=== PATIENT | male | born 2000 | race Caucasian/White ===

== ENCOUNTER 2023-04-14 18:56 | Emergency (ER) | payer OTHER, BC ==
[2023-04-14] MEDS ORDERED: Lidocaine 1% 10 ML MDV INJECT ONE (19:02)
== END 2023-04-14 19:40 | disposition home or self-care (01) ==
LOC: VM.ED 18:56
DX: S61.011A Laceration without foreign body of right thumb without damage to nail, initial encounter (principal); Z88.5 Allergy status to narcotic agent; Z88.0 Allergy status to penicillin; W26.0XXA Contact with knife, initial encounter
CPT/HCPCS: 12001; 99282; J3490